=== PATIENT | female | born 1930 | race Caucasian/White ===

== ENCOUNTER → 2017-01-08 | Emergency (ER) | payer OTHER ==
[~2017-01-08] MED LIST: APAP500 PO; ASPIR 8181 MG PO; COLACE100 MG PO; COUMADIN 2 MG TA2 M1 PO; HYDROCHLOROTHIA25 M2 PO; HYDROCODONE-AP1 EAC1 PO; HYDROCODONE-AP1 EAC6 PO; LISINOPRIL PO; LISINOPRIL40 MG PO; LORTAB 5 MG/5001 TA1 PO; MEDROL DOSPAK21 TA1; METOPROLOL 100100 M1 PO; MIRALAX17 GM PO; MIRALAX255 GM PO; NORCO 5-325 TA1 EACH PO; TOPROL XL100 MG PO; VITAMIN A DAY1 EACH PO; VITAMIN D31000 UNI2 PO; VITAMIN D400 UNI1 PO
== END ==
LOC: ER 09:59
DX: B02.9 Zoster without complications (principal); H66.92 Otitis media, unspecified, left ear; I10 Essential (primary) hypertension; F10.99 Alcohol use, unspecified with unspecified alcohol-induced disorder; Z87.891 Personal history of nicotine dependence